=== PATIENT | female | born 1980 | race Caucasian/White ===

== ENCOUNTER 2023-01-10 23:33 | Emergency (ER) | payer OTHER ==
[~2023-01-10] VITALS: Ht 162.6 cm; Wt 89.8 kg
[2023-01-11 00:11] VITALS: BP_SYST 126; PULSE 80; RESP 16; TEMP 97.8; O2SAT 97
[2023-01-11 01:21] LABS: BILIRUBIN,URINE NEGATIVE (NEGATIVE); BLOOD, URINE 1+ (NEGATIVE); COLOR,URINE YELLOW (YELLOW); GLUCOSE,URINE NEGATIVE (NEGATIVE); KETONES,URINE NEGATIVE (NEGATIVE); LEUKOCYTE ESTERASE ,URINE NEGATIVE (NEGATIVE); NITRITE, URINE NEGATIVE (NEGATIVE); PROTEIN URINE NEGATIVE (NEGATIVE); UROBILINOGEN,URINE 0.2 (0.2-1.0)
[2023-01-11 01:49] LABS: CLARITY/URINE HAZY (CLEAR)
[2023-01-11 01:50] LABS: BACTERIA,URINE None Seen /HPF (None Seen); WBC,URINE 0-3 /HPF (0-3)
[2023-01-11] MEDS ORDERED: cefTRIAXone 1 GM in LIDOCAINE 1%, 20 ML MDV 2.1 ML IM ONE (02:00)
[2023-01-11] MEDS ORDERED: KETOROLAC TROMETHAMINE 60 MG/2 ML VIAL IM ONE (02:00)
[2023-01-11] MEDS ORDERED: NITR-85 PO (02:14)
[2023-01-11] MEDS ORDERED: PHEN-726 PO (02:14)
[2023-01-11 02:20] VITALS: BP_SYST 135; PULSE 92; RESP 17; TEMP 98.8; O2SAT 98
== END 2023-01-11 02:20 | disposition home or self-care (01) ==
LOC: SED 23:33
DX: N39.0 Urinary tract infection, site not specified (principal); R10.31 Right lower quadrant pain; R42 Dizziness and giddiness; Z79.899 Other long term (current) drug therapy
CPT/HCPCS: 99284; 81001; 81000; 96372; 81015; J0696; J1885; J2001